=== PATIENT | male | born 1960 | race Caucasian/White ===

== ENCOUNTER 2018-02-13 05:57 | Observation (INO) | payer MEDICARE, BC ==
[2018-02-12 14:14] VITALS: BMI 21.9
--- NOTE | 2018-02-13 02:12 | HP ---
HISTORY OF PRESENT ILLNESS: Mr. Tuttle is a 57-year-old man is known to us for inpatient evaluation. No significant myelopathic syndrome with upper extremity and lower extremity weakness after sufferi ng a fall at home. This is all of the setting of an MRI. It got wide showing critical high grade st enosis at C5-C6 and C6-C7 with signal change in the cord ____ C6-C7 and will not be needing to discus s surgical decompression at these 2 levels. PAST MEDICAL HISTORY: Significant for kidney transplant kidney failure, HIV/AIDS. PAST SURGICAL HISTORY: Kidney transplant, appendectomy, unspecified arm surgery, carotid artery surg sameera. CURRENT MEDICATIONS: None specified. ALLERGIES: No known drug allergies. PHYSICAL EXAMINATION: The patient is alert and oriented x3. He is wheelchair bound secondary to sig nificant ataxic gait and leg weakness. He has a 4-/5 strength in bilateral upper extremities in all movements and 3+/5 strength in bilateral lower extremities movements, particularly with hip flexion a nd knee extension. He has a positive Lee's bilaterally. ____ C4 through C7 ACDF. He explained to the patient the risks, benefits, and alternatives to the pr ocedure. The patient expressed understanding and would like to move forward with surgery as jacque pop. I do believe the patient is mentally competent and capable of making medical decisions for himsel f and we will move forward with surgery as planned. Bill Carbajal PA-C, dictating for Dr. Victor.
[2018-02-13] MEDS ORDERED: Thrombin 5000 UNITS/5 ML VIAL ONE (06:43)
[2018-02-13] MEDS ORDERED: Fentanyl 100 MCG/2 ML VIAL ONE (07:30)
[2018-02-13] MEDS ORDERED: CEFAZOLIN/Water 2 GM/20 ML SYRINGE ONE (07:47)
[2018-02-13 07:53] LABS: #Eosinphils 0.1 thou/uL (0.0-0.7); #Lymphocytes 1.6 thou/uL (1.20-3.40); #Monocytes 0.6 thou/uL (0.11-0.59); %Basophils 0.2 % (0.0-1.0); %Eosinophils 1.9 % (0.0-10.0); %Lymphocytes 37.1 % (21.0-51.0); %Monocytes 14.4 % (0.0-10.0); %Neutrophils 46.4 % (42.0-75.0); Hemoglobin 12.6 g/dL (14.0-18.0); Mean Corpuscular HGB CONC 35.3 g/dL (32.0-36.0); Mean Corpuscular Hemoglobin 36.2 pg (27.0-31.0); Mean Platelet Volume 7.8 fL (7.4-10.4); Platelet Count 110 thou/uL (130-400); RBC Distribution Width 12.3 % (11.5-14.5); Red Blood Cell (RBC) Count 3.48 mill/uL (4.70-6.10); White Blood Cell (WBC) Count 4.3 thou/uL (4.8-10.8)
[2018-02-13 08:10] LABS: Anion Gap 11 mmol/L (10-20); BUN (Urea Nitrogen) 37 mg/dL (8.4-25.7); Calc. Creatinine Clearance 86 mL/min (70-130); Calcium 10.6 mg/dL (7.8-10.44); Carbon Dioxide 19 mmol/L (22-29); Chloride 111 mmol/L (98-107); Estimated GFR-MDRD Greater than 90; Glucose 171 mg/dL (70-105); Potassium 4.8 mmol/L (3.5-5.1); Sodium 136 mmol/L (136-145)
[2018-02-13] MEDS ORDERED: Promethazine HCl 25 MG/ML VIAL SLOW IVP PRN ×2 (09:21)
[2018-02-13] MEDS ORDERED: Promethazine HCl 25 MG/ML VIAL IM PRN ×2 (09:21)
[2018-02-13] MEDS ORDERED: Meperidine HCl/PF 25 MG/ML VIAL SLOW IVP PRN ×2 (09:21)
[2018-02-13] MEDS ORDERED: Ondansetron HCl/PF 4 MG/2 ML Vial IVP PRN ×3 (09:21→11:24)
--- NOTE | 2018-02-13 09:40 | OP ---
DATE OF PROCEDURE: 02/13/2018 SURGEON: Mark Victor M.D. HEALTH INFORMATION PROVIDER: Antwon Carbajal PA-C. INDICATION: Prevent neurologic decline. 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 ANESTHESIA: General. PROCEDURE IN DETAIL: The patient was brought into the operating room and placed on the table in a anthony pine position with attention towards keeping his neck neutral. A transverse incision was planned ove r the lateral aspect of the neck on the right. After prepping and draping and after an appropriate o perative pause, the incision was created. The underlying platysma muscles identified and incised. A blunt tissue plane anterior to the sternocleidomastoid muscle was used to gain access to the prevert ebral space. Self-retaining retractors were placed in the wound for optimal exposure. Annulotomies were performed at C5-6 and C6-7, disk material and anterior and posterior osteophytes were removed at both levels under distraction. After completely decompressing the underlying spinal canal 6 mm lord otic PEEK cages packed with allograft and autograft material were placed within the interbody space. An anterior cervical plate was then fashioned in front of the spine and secured with a total of 6 sc rews. Midline and lateral structures were then inspected and found to be free from significant traum a. The wound was irrigated. Hemostasis was maintained throughout. The wound was then closed in ketty tomic layers and a pressure dressing was applied. There were no known procedural complications.
[2018-02-13] MEDS ORDERED: Acetaminophen/Codeine 30-300mg Tablet PO PRN (11:21)
[2018-02-13] MEDS ORDERED: Bisacodyl 10 MG SUPP PR PRN (11:21)
[2018-02-13] MEDS ORDERED: Acetaminophen 650 MG Suppository PR PRN (11:21)
[2018-02-13] MEDS ORDERED: diphenhydrAMINE 50 MG/ML VIAL IVP PRN (11:21)
[2018-02-13] MEDS ORDERED: diphenhydrAMINE 25 MG CAP PO PRN (11:21)
[2018-02-13] MEDS ORDERED: Acetaminophen 325 MG TAB PO PRN (11:21)
[2018-02-13] MEDS ORDERED: Morphine 4 MG/ML VIAL IV PRN ×2 (11:22→11:23)
[2018-02-13] MEDS ORDERED: ePHEDrine/0.9% NaCl/PF SYRINGE 50 mg/10 ml ONE (11:27)
[2018-02-13] MEDS ORDERED: Hydrocortisone Sod Succ/PF 100 mg/2 ml Vial ONE (11:27)
[2018-02-13] MEDS ORDERED: PHENYLEPHRINE-NS 100 MCG/ML 10 ML SYRINGE ONE (11:27)
[2018-02-13] MEDS ORDERED: PROPOFOL 200 MG/20 ML VIAL ONE (11:27)
[2018-02-13] MEDS ORDERED: Lidocaine 1% PF 5 ML VIAL ONE (11:27)
[2018-02-13] MEDS ORDERED: Glycopyrrolate 0.2 MG/ML 5 ML SYRINGE ONE (11:27)
[2018-02-13] MEDS ORDERED: Ondansetron HCl/PF 4 MG/2 ML Vial ONE (11:27)
[2018-02-13] MEDS ORDERED: Prevnar 13-Val Conj/PF 0.5 ML SYRINGE IM ONE (13:30)
[2018-02-13] MEDS: CEFAZOLIN/Water 2 GM/20 ML SYRINGE SLOW IVP SCH ×2 (14:21→22:15)
[2018-02-13] MEDS: Sodium Chloride 0.9% 1,000 ML IV SCH (14:28)
[2018-02-13] MEDS: Insulin NPH/Reg Insulin Hm 300 UNITS/3 ML VIAL SC SCH ×2 (14:28→19:46)
[2018-02-13] MEDS: Acetaminophen/Codeine 30-300mg Tablet PO PRN (16:23)
[2018-02-13] MEDS: Cyclobenzaprine 10 MG TAB PO PRN (16:24)
[2018-02-13] MEDS: Carvedilol 6.25 MG TAB PO SCH (20:01)
[2018-02-13] MEDS ORDERED: Cepastat Lozenges 1 LOZ PO PRN (20:13)
[2018-02-13] MEDS: Tacrolimus 1 MG CAP PO SCH (20:26)
[2018-02-13] MEDS: predniSONE 5 MG TAB PO SCH (20:26)
[2018-02-13] MEDS: K-Phos Neutral 250 MG TAB PO SCH (20:26)
[2018-02-13] MEDS: Sodium Bicarbonate Tab 325 MG TAB PO SCH (20:26)
[2018-02-13] MEDS: Mycophenolate 250 MG CAP PO SCH (20:26)
[2018-02-13] MEDS ORDERED: NPH, Human Insulin Isophane 300 UNIT/3 ML VIAL SC SCH (21:00)
[2018-02-13] MEDS ORDERED: Atorvastatin Calcium 40 MG TAB PO SCH (21:00)
[2018-02-14] MEDS: Cyclobenzaprine 10 MG TAB PO PRN ×2 (01:36→12:27)
[2018-02-14] MEDS: Sodium Chloride 0.9% 1,000 ML IV SCH (02:15)
[2018-02-14] MEDS: predniSONE 5 MG TAB PO SCH (05:33)
[2018-02-14] MEDS: Mycophenolate 250 MG CAP PO SCH (05:33)
[2018-02-14] MEDS: Cephalexin 250 MG CAP PO SCH ×2 (05:33→10:31)
[2018-02-14] MEDS ORDERED: Levothyroxine Sodium 75 MCG TAB PO SCH (06:00)
[2018-02-14] MEDS ORDERED: Tamsulosin HCl 0.4 MG CAP PO SCH (06:00)
[2018-02-14] MEDS: Tacrolimus 1 MG CAP PO SCH (06:24)
[2018-02-14] MEDS ORDERED: TRADJENTA 5 MG PO SCH (09:00)
[2018-02-14] MEDS: Insulin NPH/Reg Insulin Hm 300 UNITS/3 ML VIAL SC SCH ×3 (09:10→13:32)
[2018-02-14] MEDS: Carvedilol 6.25 MG TAB PO SCH (09:11)
[2018-02-14] MEDS: K-Phos Neutral 250 MG TAB PO SCH (09:12)
[2018-02-14] MEDS: Sodium Bicarbonate Tab 325 MG TAB PO SCH (09:13)
[2018-02-14 11:39] VITALS: BP 143/77; TEMP 98.3
[2018-02-14] MEDS: Acetaminophen/Codeine 30-300mg Tablet PO PRN (12:27)
--- NOTE | 2018-02-15 00:14 | DIS ---
ENCOUNTER: 07:45 this morning. Mr. Tuttle is a 57-year-old man who was admitted to [facility] in the postoperative period b y Dr. Mark Victor on 02/13/2018 and subsequently discharged the following day 02/14/2018. ADMISSION DIAGNOSIS: Status post anterior cervical discectomy and fusion. DISCHARGE DIAGNOSES: Status post anterior cervical discectomy and fusion and cervical myelopathy. HOSPITAL COURSE: Mr. Tuttle stay was not complicated by pain or any other reason, we did have consul t ordered to case management and physical therapy to help facilitate him back to his nursing facility . He was ultimately transferred there in good condition with outpatient followup planned at 2 weeks.
--- NOTE | 2018-02-17 08:46 | EKG ---
Test Reason : PREOP Blood Pressure : / mmHG Vent. Rate : 089 BPM Atrial Rate : 089 BPM P-R Int : 146 ms QRS Dur : 096 ms QT Int : 354 ms P-R-T Axes : 059 012 143 degrees QTc Int : 430 ms Normal sinus rhythm Left ventricular hypertrophy with repolarization abnormality Abnormal ECG When compared with ECG of 25-JAN-2013 18:08, No significant change was found Confirmed by KIAN MARTINEZ MD ([id number]) on 02/17/2018 8:45:41 AM Referred By: CARMINA Confirmed By:KIAN MARTINEZ MD
[2018-02-18] MEDS ORDERED: Alendronate Sodium 70 mg Tablet PO SCH (06:00)
[2018-02-27] MEDS ORDERED: OSTERA PO SCH (09:00)
== END 2018-02-14 13:38 | disposition home or self-care (01) ==
LOC: SDC 05:57 → EEVIPCON 05:57 → SJJU 09:50
PROVIDERS: ADMIT Neurological Surgery; ATTEND Neurological Surgery
PROC: 0RG20A0 Fusion of 2 or more Cervical Vertebral Joints with Interbody Fusion Device, Anterior Approach, Anterior Column, Open Approach (ICD-10-PCS; principal; 2018-02-13)
PROC: 0RT30ZZ Resection of Cervical Vertebral Disc, Open Approach (ICD-10-PCS; 2018-02-13)
DX: M47.12 Other spondylosis with myelopathy, cervical region (principal); M25.78 Osteophyte, vertebrae; T86.12 Kidney transplant failure; Z21 Asymptomatic human immunodeficiency virus [HIV] infection status; Z79.2 Long term (current) use of antibiotics; Z79.4 Long term (current) use of insulin; Z79.82 Long term (current) use of aspirin; Z79.83 Long term (current) use of bisphosphonates; Z79.52 Long term (current) use of systemic steroids; Z79.899 Other long term (current) drug therapy; Z90.49 Acquired absence of other specified parts of digestive tract; Z98.890 Other specified postprocedural states
CPT/HCPCS: 20930; 20936; 22551; 22552; 22845; 22853 ×2; 76001; 80048; 82962 ×2; 85025; 93005; 97116; 97139 ×2; 97535; C1713; C1776; G0378; G8978; G8979; G8987; G8988; 36416; 93010; A4216; J1720; J2001; J2405; J2704; J3010; J7507; J7517

== ENCOUNTER 2018-03-26 10:18 | Outpatient (CLI) | payer BC, MEDICARE ==
--- NOTE | 2018-03-26 12:39 | RAD ---
CERVICAL SPINE THREE VIEWS: Date: 03-26-18 Comparison: None. History: Fall, history of surgery, cervical radiculopathy. FINDINGS: Extensive post-operative clips overlie the neck bilaterally. There is anterior discectomy and fusion hardware present at C5-6 and C6-7. There is disc space narrowing with degenerative endplate change an d anterior osteophyte formation at C3-4 and C4-5. There is no significant anterolisthesis or retrolis thesis. No prevertebral soft tissue swelling is seen. Open mouth odontoid view demonstrates a normal appearing dens and C1-2 articulation. At C3-4 there is bilateral facet and uncal vertebral osteophyte formation, left greater than right. IMPRESSION: Multilevel post-operative and degenerative change present within the cervical spine as detailed above . POS: KHALIF
== END 2018-03-26 10:19 | disposition home or self-care (01) ==
LOC: TBSIIMAG 10:18
PROVIDERS: ATTEND Neurological Surgery
DX: M47.22 Other spondylosis with radiculopathy, cervical region (principal); M48.02 Spinal stenosis, cervical region; Z98.890 Other specified postprocedural states
CPT/HCPCS: 72040